=== PATIENT | male | born 1960 | race Caucasian/White ===

== ENCOUNTER 2018-10-05 16:59 | Emergency (ER) | payer SELFPAY ==
[2018-10-05 17:32] LABS: #Basophils 0.2 thou/uL (0.0-0.2); #Eosinphils 0.8 thou/uL (0.0-0.7); #Lymphocytes 4.2 thou/uL (1.20-3.40); #Monocytes 2.5 thou/uL (0.11-0.59); #Neutrophils 11.3 thou/uL (1.40-6.50); %Basophils 1.1 % (0.0-1.0); %Monocytes 13.4 % (0.0-10.0); %Neutrophils 59.5 % (42.0-75.0); Hemoglobin 14.3 g/dL (14.0-18.0); Mean Corpuscular HGB CONC 31.9 g/dL (32.0-36.0); Mean Corpuscular Hemoglobin 28.2 pg (27.0-31.0); Mean Corpuscular Volume 88.3 fL (78.0-98.0); Mean Platelet Volume 7.2 fL (7.4-10.4); Platelet Count 349 thou/uL (130-400); RBC Distribution Width 12.1 % (11.5-14.5); Red Blood Cell (RBC) Count 5.08 mill/uL (4.70-6.10)
[2018-10-05 17:55] LABS: ALT (SGPT) 20 U/L (8-55); AST (SGOT) 17 U/L (5-34); Albumin 4.1 g/dL (3.5-5.0); Alkaline Phosphatase 85 U/L (40-150); Anion Gap 17 mmol/L (10-20); BUN (Urea Nitrogen) 23 mg/dL (8.4-25.7); Bilirubin, Total 0.7 mg/dL (0.2-1.2); Calc. Creatinine Clearance 0 mL/min (70-130); Calcium 9.6 mg/dL (7.8-10.44); Carbon Dioxide 22 mmol/L (22-29); Chloride 100 mmol/L (98-107); Estimated GFR-MDRD 40; Globulin 3.7 g/dL (2.4-3.5); Glucose 109 mg/dL (70-105); Potassium 3.8 mmol/L (3.5-5.1); Protein, Total 7.8 g/dL (6.0-8.3); Sodium 135 mmol/L (136-145)
--- NOTE | 2018-10-05 18:00 | RAD ---
CHEST TWO VIEWS: HISTORY: Difficulty breathing and dyspnea. COMPARISON: None. FINDINGS: Two views of the chest show normal sized cardiomediastinal silhouette. There is no evidence of consol idation, mass, or pleural effusion. Degenerative changes are seen in the spine. IMPRESSION: No evidence of acute cardiopulmonary disease. POS: [facility]
[2018-10-05] MEDS ORDERED: Sodium Chloride 0.9% 1,000 ML ONE (18:50)
[2018-10-05] MEDS ORDERED: Azithromycin 500 MG VIAL ONE (18:50)
[2018-10-05] MEDS ORDERED: Sodium Chloride 0.9% 250 ML 250 ML ONE (18:52)
[2018-10-05 19:14] LABS: Lactic Acid 0.8 mmol/L (0.5-2.2)
[2018-10-05] MEDS ORDERED: cefTRIAXone\\ROCEPHIN 2 GM VIAL ONE (19:25)
[2018-10-05] MEDS ORDERED: Sodium Chloride 0.9% 0 ML ONE (19:25)
[2018-10-05] MEDS ORDERED: Sodium Chloride 0.9% 100 ML ONE (20:52)
== END 2018-10-05 22:15 | disposition short-term general hospital (02) ==
LOC: NAV ERS 16:59
DX: J18.9 Pneumonia, unspecified organism (principal); N17.9 Acute kidney failure, unspecified; I10 Essential (primary) hypertension; Z79.899 Other long term (current) drug therapy; Z79.82 Long term (current) use of aspirin
CPT/HCPCS: 71046; 80053; 83605; 83735; 83880; 84484; 85025; 85379; 87040; 87804; 93005; 94760; 96365; 96367; J0456; J0696; J1956; J7050

== ENCOUNTER 2020-06-03 19:31 | Emergency (ER) | payer BC, SELFPAY ==
[2020-06-03] MEDS ORDERED: Ketorolac Tromethamine 60 MG/2 ML VIAL ONE (19:51)
== END 2020-06-03 20:30 | disposition home or self-care (01) ==
LOC: NAV ERS 19:31
DX: S29.012A Strain of muscle and tendon of back wall of thorax, initial encounter (principal); R21 Rash and other nonspecific skin eruption; I10 Essential (primary) hypertension; E66.9 Obesity, unspecified; Z79.899 Other long term (current) drug therapy; X50.9XXA Other and unspecified overexertion or strenuous movements or postures, initial encounter
CPT/HCPCS: 96372; 99283; J1885

== ENCOUNTER 2020-06-23 06:10 | Emergency (ER) | payer BC ==
[2020-06-23] MEDS ORDERED: Ketorolac Tromethamine 60 MG/2 ML VIAL ONE (06:52)
[2020-06-23] MEDS ORDERED: Cyclobenzaprine 10 MG TAB ONE (06:52)
[2020-06-23 08:32] LABS: #Basophils 0.1 thou/uL (0.0-0.2); #Eosinphils 0.4 thou/uL (0.0-0.7); #Lymphocytes 1.5 thou/uL (1.20-3.40); #Monocytes 1.3 thou/uL (0.11-0.59); #Neutrophils 12.3 thou/uL (1.40-6.50); %Basophils 0.5 % (0.0-1.0); %Eosinophils 2.5 % (0.0-10.0); %Lymphocytes 9.3 % (21.0-51.0); %Monocytes 8.4 % (0.0-10.0); %Neutrophils 79.3 % (42.0-75.0); Hemoglobin 14.8 g/dL (14.0-18.0); Mean Corpuscular HGB CONC 32.1 g/dL (32.0-36.0); Mean Corpuscular Hemoglobin 28.5 pg (27.0-31.0); Mean Corpuscular Volume 88.9 fL (78.0-98.0); Mean Platelet Volume 7.6 fL (7.4-10.4); Platelet Count 281 thou/uL (130-400); RBC Distribution Width 12.3 % (11.5-14.5); Red Blood Cell (RBC) Count 5.21 mill/uL (4.70-6.10); White Blood Cell (WBC) Count 15.6 thou/uL (4.8-10.8)
[2020-06-23] MEDS ORDERED: Sodium Chloride 0.9% 1,000 ML ONE (08:32)
[2020-06-23 08:53] LABS: ALT (SGPT) 15 U/L (8-55); AST (SGOT) 14 U/L (5-34); Alkaline Phosphatase 92 U/L (40-110); Anion Gap 15 mmol/L (10-20); BUN (Urea Nitrogen) 28 mg/dL (8.4-25.7); Bilirubin, Total 0.6 mg/dL (0.2-1.2); Calc. Creatinine Clearance 0 mL/min (70-130); Calcium 9.8 mg/dL (7.8-10.44); Carbon Dioxide 23 mmol/L (22-29); Chloride 101 mmol/L (98-107); Estimated GFR-MDRD 44; Globulin 3.3 g/dL (2.4-3.5); Glucose 112 mg/dL (70-105); Potassium 4.7 mmol/L (3.5-5.1); Protein, Total 7.3 g/dL (6.0-8.3); Sodium 134 mmol/L (136-145)
--- NOTE | 2020-06-23 09:08 | CT ---
CT THORACIC SPINE WITHOUT CONTRAST: Date: 06/23/2020 INDICATION: Back pain. History of falling from horse 2 years ago. Comparison made to lateral chest film on 10/05/2018 of which imaged the mid and lower thoracic spine. FINDINGS: There are prominent degenerative changes of the thoracic spine. There are large bridging osteophytes and there is partial ossification of anterior longitudinal ligament in the mid and lower thoracic spi ne. There is a fracture which involves the inferior end plate of T6 and extends obliquely to the anterior cortex. This fracture extends through a large anterior osteophyte. This T6 fracture was present on t he lateral thoracic spine exam from the lateral chest view of 10/05/2018. Otherwise, the thoracic vertebra maintain height and alignment. There is osteopenia. There is a focal lytic lesion involving the T6 vertebra which measures approximately 10.0 mm diameter. There are othe r small focal areas of lucency seen scattered throughout the vertebra. Entities such as multiple myel suki should be excluded. There is no evidence of acute fracture. There is no evidence of central canal stenosis. No evidence o f disc protrusion at any of the thoracic levels. IMPRESSION: 1. Fracture involving the T6 vertebra which extends from the anterior cortex to the inferior end mary te with slight separation of the anterior inferior corner of T6 is a stable finding when compared to lateral chest film of 10/05/2018. 2. Prominent hypertrophic degenerative changes seen throughout the thoracic spine with bridging oste ophytes and ossification of anterior longitudinal ligament. 3. Bones show osteopenia and focal areas of lucency. A prominent lucency seen in the T6 vertebra twin suring 1.0 cm. Entities such as bone metastasis and multiple myeloma should be excluded clinically. 4. There is no evidence of acute fracture or central canal stenosis. POS: [facility]
== END 2020-06-23 09:37 | disposition home or self-care (01) ==
LOC: NAV ERS 06:10
DX: M54.6 Pain in thoracic spine (principal); I10 Essential (primary) hypertension; Z79.899 Other long term (current) drug therapy; X50.1XXA Overexertion from prolonged static or awkward postures, initial encounter; Y99.0 Civilian activity done for income or pay
CPT/HCPCS: 36415; 72128; 80053; 85025; 96360; 96372; J1885; J7050

== ENCOUNTER 2020-07-05 16:53 | Outpatient (CLI) | payer BC ==
--- NOTE | 2020-07-05 17:27 | RAD ---
THORACIC SPINE RADIOGRAPHS THREE VIEWS: 07/05/20 PROVIDED CLINICAL HISTORY: Fracture. FINDINGS: Correlation is made with CT examination 06/23/20. Fracture involving the T6 vertebral body is redemonstrated, similar to prior. Thoracic alignment appe ars normal. Vertebral body heights appear preserved. Multilevel thoracic bridging osteophyte formatio n compatible with DISH. IMPRESSION: As above. POS: [facility]
== END 2020-07-05 16:54 | disposition home or self-care (01) ==
LOC: NAV RAD 16:53
PROVIDERS: ATTEND Physician Assistant
DX: S22.009A Unspecified fracture of unspecified thoracic vertebra, initial encounter for closed fracture (principal)
CPT/HCPCS: 72072

== ENCOUNTER 2020-08-06 10:53 | Outpatient (CLI) | payer BC ==
--- NOTE | 2020-08-06 11:13 | RAD ---
Thoracic spine 3 views HISTORY: Fracture. Follow-up. COMPARISON: 07/05/2020 and 06/23/2020. FINDINGS: There are 12 thoracic type vertebrae. Pedicles are intact. Mild leftward convex curvature o f the upper thoracic spine on the frontal view is similar in appearance to the prior study. Oblique mildly distracted fracture through the anterior-inferior aspect of the T6 vertebral body is l ess well seen than on prior CT. Alignment is unchanged. No significant compression. Ossification of anterior longitudinal ligament of the thoracic spine is consistent with diffuse idiop athic skeletal hyperostosis. Osteophytosis throughout the vertebral bodies and facets again demonstrated. Frontal view partially demonstrates hyperdense gallstones over the right upper quadrant. Deformity of the lateral aspect of the right second rib likely represents an old healed injury. IMPRESSION : Stable radiographic appearance of the noncompressed T6 vertebral body fracture. No new abnormalities.
== END 2020-08-06 10:54 | disposition home or self-care (01) ==
LOC: NAV RAD 10:53
PROVIDERS: ATTEND Surgery
DX: S22.059D Unspecified fracture of T5-T6 vertebra, subsequent encounter for fracture with routine healing (principal)
CPT/HCPCS: 72072

== ENCOUNTER 2021-02-26 08:07 | Emergency (ER) | payer BC ==
[2021-02-26] MEDS ORDERED: Ketorolac Tromethamine 30 MG/ML VIAL ONE (08:50)
== END 2021-02-26 09:00 | disposition home or self-care (01) ==
LOC: NAV ERS 08:07
DX: S83.91XA Sprain of unspecified site of right knee, initial encounter (principal); M17.11 Unilateral primary osteoarthritis, right knee; I10 Essential (primary) hypertension; W18.30XA Fall on same level, unspecified, initial encounter
CPT/HCPCS: 96372; J1885